=== PATIENT | male | born 1985 | race Caucasian/White ===

== ENCOUNTER 2018-04-30 16:25 | Inpatient (IN) | payer OTHER ==
[~2018-04-30] VITALS: Ht 172.7 cm; Wt 89.6 kg
--- NOTE | ~2018-04-30 | P ---
[facility] [place] [address] PROCEDURE REPORT Name: MARIO MARLOW Room #: 213-P [facility] IN M.R.#: [id number] Admission: 04/30/18 Attend Phys: Zenon Workman Discharge: Date of : 81 Report #: [id number] THIS REPORT FOR: //name// CC: Zenon Cortesen Eduardo DATE OF SERVICE: 05/01/2018 PREPROCEDURE DIAGNOSIS: Ulceration and soft tissue necrosis of the left dorsal aspect of the left forearm. POSTPROCEDURE DIAGNOSIS: Ulceration and soft tissue necrosis of the left dorsal aspect of the left forearm. PROCEDURE PERFORMED: Sharp full-thickness surgical debridement of two areas of necrosis involving the left forearm. PROCEDURE DESCRIPTION: The patient's forearm was noted to have significant ulceration and necrotic material with foul-smelling drainage and tissue loss. After appropriate verbal consent, the area was prepped and draped in usual sterile fashion. I have utilized #15 bladed scalpel and tissue forceps and performed sharp full thickness surgical debridement, removing necrotic tissue including skin and subcutaneous tissue down to healthy bleeding base including subcutaneous fat. The patient tolerated the procedure well. Procedural pain 4 on a scale of 1-10. Postprocedural pain 0 on a scale of 1-10. ESTIMATED BLOOD LOSS: Approximately 5 mL. ANESTHESIA: None. Preprocedure measurements include 3.3 cm x 3.0 cm x 0.2 cm. Following debridement, this area measures 3.5 x 3.0 x 0.5 cm. The second wound measured preprocedure 3.1 cm x 2.5 cm x 0.2 cm. Post-debridement measures 3.4 x 2.5 x 0.5 cm. The patient tolerated the procedure well. Hemostasis was intact with direct pressure. <ELECTRONICALLY SIGNED> By: Jose Carlos Ragsdale MD 05/02/18 1300 [id number] Jose Carlos Ragsdale MD /nt
--- NOTE | ~2018-04-30 | TEE ---
[facility] [email or web address] [place] [address] TRANSESOPHAGEAL ECHOCARDIOGRAM Name: KASHMIRMARIO Britt Room #: 238-P [facility] IN .R.#: [id number] Admission: 04/30/18 Attend Phys: Zenon Laboy Discharge: Date of : 81 Date of Service: 05/05/18 0958 Report #: [id number] THIS REPORT FOR: //name// APPROVED REPORT Study performed: 05/05/2018 08:18:38 EXAM: Comprehensive 2D, Doppler, and color-flow Echocardiogram Patient Location: ICU Room #: [facility] Status: routine BSA: 2.08 HR: 97 bpm BP: 116/52 mmHg Rhythm: NSR Other Information Study Quality: Good Indications Endocarditis Procedure After obtaining informed consent, patient underwent transesophageal echo in the ICU. Type of Sedation : Conscious Sedation Sedation was administered by Nurse. Sedation was achieved intravenously with: Versed (8 mg) Fentanyl (200 mcg) Transesophageal probe was inserted and advanced into esophagus without difficulty by Jose Abraham MD. The GEOFF was performed without complications. Throughout the procedure, the blood pressure, pulse oximetry, cardiac rhythm, and rate were monitored. The patient tolerated the procedure without adverse effects. Recovery from conscious sedation was uneventful and vital signs were stable. Left Ventricle The left ventricle is normal size. There is normal LV segmental wall motion. There is normal left ventricular wall thickness. The left ventricular systolic function is normal. The left ventricular ejection fraction is within the normal range. LVEF is 55-60%. [facility] [address] [place] [address] TRANSESOPHAGEAL ECHOCARDIOGRAM Name: MARIO MARLOW Room #: 238-P [facility] IN .R.#: [id number] Admission: 04/30/18 Attend Phys: Zenon Laboy Discharge: Date of : 81 Date of Service: 05/05/18 0958 Report #: [id number] Right Ventricle The right ventricle is normal size. The right ventricular systolic function is normal. Atria The left atrium size is normal. No thrombus is visualized in the left atrium or appendage. A catheter is seen in the right atrium. 2.7cm long, 1.4cm wide oval, irregular bordered broad based mass attached to right atrial free wall just at or superior to tricuspid valve annulus. Mass does not appear to affect function of valve. Findings consistent with vegetation Aortic Valve The aortic valve is normal in structure. No aortic regurgitation is present. There is no aortic valvular stenosis. Mitral Valve The mitral valve is normal in structure. Mild mitral regurgitation. No evidence of mitral valve stenosis. Tricuspid Valve The tricuspid valve is normal in structure. Mild tricuspid regurgitation. Large tricuspid valve vegetation is present. Pulmonic Valve The pulmonary valve is normal in structure. There is no pulmonic valvular regurgitation. Great Vessels The aortic root is normal in size. IVC is normal in size and collapses >50% with inspiration. Pericardium There is no pericardial effusion. Critical Notification Critical Value: Yes Physician Notified Date: 05/05/2018 <Conclusion> The left ventricular systolic function is normal. There is normal LV segmental wall motion. LVEF 55-60%. No thrombus is visualized in the left atrium or appendage. A catheter is seen in the right atrium. 2.7cm long, 1.4cm wide oval, irregular bordered broad based mass attached to right atrial free [facility] [address] [address] TRANSESOPHAGEAL ECHOCARDIOGRAM Name: MARIO MARLOW Room #: 238-P [facility] IN .R.#: [id number] Admission: 04/30/18 Attend Phys: Zenon Laboy Discharge: Date of : 81 Date of Service: 05/05/18957 Report #: [id number] wall just at or superior to tricuspid valve annulus. Mass does not appear to affect function of valve. Findings consistent with vegetation The aortic valve is normal in structure. No aortic regurgitation or stenosis The mitral valve is normal in structure. Mild mitral regurgitation. There is no pericardial effusion. <ELECTRONICALLY SIGNED> By: Jose Abraham MD, [facility] 05/05/18957 7 0958 Jose Abraham MD, FACC /INF
--- NOTE | ~2018-04-30 | 2DMMODE ---
[facility] [address] [place] [address] 2 D/M-MODE ECHOCARDIOGRAM Name: MARIO MARLOW Room #: 213-P ADM IN M.R.#: [id number] Admission: 04/30/18 Attend Phys: Zenon Laboy Discharge: Date of : 81 Date of Service: 05/01/18 1104 Report #: [id number] THIS REPORT FOR: //name// APPROVED REPORT Study performed: 05/01/2018 10:21:51 EXAM: Comprehensive 2D, Doppler, and color-flow Echocardiogram Patient Location: Bedside Room #: 213 Status: routine BSA: 1.93 HR: 101 bpm BP: 112/53 mmHg Indications Sepsis, MSSA, recurrent. History of IV drug abuse. 2D Dimensions RVDd: 37.76 mm IVSd: 9.32 (7-11mm) LVOT Diam: 21.90 (18-24mm) LVDd: 49.72 mm PWd: 7.61 (7-11mm) Ascending Ao: 28.26 (22-36mm) LVDs: 37.29 (25-40mm) Aortic Root: 31.77 mm Volumes Left Atrial Volume (Systole) Single Plane 4CH: 32.22 mL Single Plane 2CH: 54.39 mL LA ESV Index: 24.00 mL/m2 Aortic Valve AoV Peak Renato.: 1.22 m/s AO Peak Gr.: 5.99 mmHg LVOT Max P.05 mmHg LVOT Max V: 1.01 m/s RHODA Vmax: 3.10 cm2 Mitral Valve E/A Ratio: 1.5 MV Decel. Time: 97.01 ms MV E Max Renato.: 0.76 m/s MV A Renato.: 0.51 m/s MV PHT: 28.13 ms IVRT: 55.36 ms [facility] [place] [address] 2 D/M-MODE ECHOCARDIOGRAM Name: MARIO MARLOW Room #: 213-P [facility]..#: [id number] Admission: 04/30/18 Attend Phys: Zenon Laboy Discharge: Date of : 81 Date of Service: 05/01/18 1104 Report #: [id number] Pulmonary Valve PV Peak Rneato.: 0.90 m/s PV Peak Gr.: 3.27 mmHg Pulmonary Vein P Vein S: 0.33 m/s P Vein D: 0.52 m/s P Vein S/D Ratio: 0.63 Tricuspid Valve TR Peak Renato.: 2.33 m/s RAP Estimate: 5.00 mmHg TR Peak Gr.: 21.68 mmHg PA Pressure: 27.00 mmHg Left Ventricle The left ventricle is normal size. There is normal LV segmental wall motion. There is normal left ventricular wall thickness. Left ventricular systolic function is normal. LVEF is 50-55%. The left ventricular diastolic function is normal. Right Ventricle The right ventricle is normal size. The right ventricular systolic function is normal. Atria The left atrium size is normal. The right atrium size is normal. Aortic Valve The aortic valve is normal in structure. No aortic regurgitation is present. There is no aortic valvular vegetation. There is no aortic valvular stenosis. Mitral Valve The mitral valve is normal in structure. Trace mitral regurgitation. There is no evidence of mitral valve vegetations. Tricuspid Valve The tricuspid valve is normal in structure. Trace tricuspid regurgitation. Estimated PAP is 25-30mmHg. There is no tricuspid valve vegetations. Pulmonic Valve The pulmonary valve is normal in structure. Trace pulmonic regurgitation. Great Vessels [facility] [address] [place] [address] 2 D/M-MODE ECHOCARDIOGRAM Name: TRISTENRickiMARIO WATSON Room #: 213-P [facility] IN .R.#: [id number] Admission: 04/30/18 Attend Phys: Zenon Laboy Discharge: Date of : 81 Date of Service: 05/01/18 1104 Report #: [id number] The aortic root is normal in size. The ascending aorta is normal in size. IVC is normal in size and collapses >50% with inspiration. Pericardium There is no pericardial effusion. <Conclusion> The left ventricle is normal size. LVEF is 50-55%. The aortic valve is normal in structure. No aortic regurgitation is present. There is no aortic valvular vegetation. The mitral valve is normal in structure. Trace mitral regurgitation. There is no evidence of mitral valve vegetations. The tricuspid valve is normal in structure. Trace tricuspid regurgitation. Estimated PAP is 25-30mmHg. There is no tricuspid valve vegetations. There is no pericardial effusion. <ELECTRONICALLY SIGNED> By: Shawn Mcclendon MD 05/01/18 1104 1104 1104 Shawn Mcclendon MD /INF
--- NOTE | ~2018-04-30 | HC ---
[facility] [place] [address] CONSULTATION Name: TRISTENMARISMARIO Room #: 213-P ADM IN M.R.#: [id number] Admission: 04/30/18 Attend Phys: Zenon Workman Discharge: Date of : 81 Report #: [id number] THIS REPORT FOR: //name// CC: Zenon Workman Ned Eduardo DATE OF SERVICE: 05/01/2018 CHIEF COMPLAINT: Cellulitis and abscess of the right hip as well as persistent ulceration to the left forearm following a subcutaneous drug use. HISTORY OF PRESENT ILLNESS: This is a 32-year-old white male patient who was admitted to the hospital yesterday with significant swelling and redness of his right hip area. He has a history of IV drug use and subcutaneous drug use. He has been sober for greater than one year. He has had chronic ulceration or wound into his left forearm with previous staph infection. He has had previous debridement of this, but has not had recent care. He was noted to have increasing swelling of his right hip. CT scan showed a 24 x 13 x 2 cm fluid collection in the right lower extremity from the iliac crest to mid thigh. He is scheduled for a drainage procedure. He notes that he has had previous debridement of his forearm by an orthopedic surgeon. He relates some previous discussion of skin grafting which has not been undertaken. ALLERGIES: LEVAQUIN. PAST MEDICAL HISTORY: Positive for abscess and ulceration of the left forearm. MEDICATIONS: The patient's medications include metformin, trazodone, citalopram, Imitrex, Vistaril, Neurontin, hydrocodone. PAST MEDICAL HISTORY: Positive for history of kidney stones, anxiety, history of IV drug abuse, migraine, an MSSA infection to the left forearm. SOCIAL HISTORY: The patient smokes cigarettes. He denies current drug use. He states he has gone through a program to gain sobriety and has moved away from his social contacts in order to be free of the temptation to begin using drugs again. FAMILY HISTORY: Noncontributory. REVIEW OF SYSTEMS: CONSTITUTIONAL: The patient does complain of some fever and chills. Denies recent weight loss. NEUROLOGICAL: The patient denies focal weakness, numbness or tingling. EYES: The patient denies visual changes, redness or drainage. ENT: The patient denies earache, nasal drainage, sore throat. [address] [address] CONSULTATION Name: MARIO MARLOW Britt Room #: 213-P [facility] IN ..#: [id number] Admission: 04/30/18 Attend Phys: Zenon Workman Discharge: Date of : 81 Report #: [id number] CARDIOVASCULAR: The patient denies chest pain, palpitations or diaphoresis. PULMONARY: The patient denies cough or shortness of breath. GASTROINTESTINAL: The patient denies nausea, vomiting, diarrhea or abdominal pain. ORTHOPEDIC: The patient complains of significant pain, swelling and redness to his right hip as well as the ulcerations to the left forearm. Other systems in a 14-point review of systems are negative. PHYSICAL EXAMINATION: VITAL SIGNS: At this time include pulse rate 102, respiratory rate of 20, blood pressure 136/53, temperature of 99.4, T-max is 103.0. GENERAL: This is a well-developed, well-nourished male patient, appears to be in minimal distress. HEENT: Head normocephalic. Nose and throat are clear. NECK: Supple. LUNGS: Clear. HEART: Regular rhythm. ABDOMEN: Soft. Bowel sounds present. MUSCULOSKELETAL: Right hip demonstrates significant erythema, swelling, tenderness to the right hip area. No obvious fluctuance is noted. Left upper extremity demonstrates multiple ulcerations and areas of necrosis involving the dorsal aspect of the forearm. This area was debrided. Please see separate surgical debridement note performed at bedside today. NEUROLOGIC: The patient is alert and oriented and appropriate. LABORATORY DATA: Includes sodium 133, potassium is 3.4, chloride 101, CO2 of 20, BUN 32, creatinine 1.4, glucose 104. CRP is markedly elevated at 469.7. Urine drug screen is positive for cocaine and opiates. White blood cell count initially was 26.9, most recent is 21.7, hemoglobin is 10.8, hematocrit 33.6. CT abdomen and pelvis demonstrates cholelithiasis without bile duct dilatation. Gallbladder contracted. Pelvis CT demonstrates prominent soft tissue edema and cellulitis extend through the visualized right thigh and leg consistent with soft tissue infection, edema. No air seen in the soft tissues. Fluid extends along the fascial plane of the anterior vastus musculature extending approximately 24 cm in a cephalocaudad dimension on coronal images. 13 inch in transverse dimension and up to 2 cm in width. This was felt to be representing a soft tissue abscess. No osseous abnormalities were seen. CLINICAL IMPRESSION: 1. An abscess to the left hip and thigh region. 2. History of IV drug abuse. 3. Chronic ulceration likely due to previous abscess of left forearm. Note surgical debridement performed today. Please refer to separate dictation. RECOMMENDATIONS: At this point in time, we will recommend topical Fibracol Ag and Xeroform and gauze to the left forearm. Continue with IV antibiotic [address] [address] CONSULTATION Name: MARIO MARLOW Room #: 213-P [facility] IN .R.#: [id number] Admission: 04/30/18 Attend Phys: Zenon Workman Discharge: Date of : 81 Report #: [id number] therapy. A drainage procedure is scheduled for his right hip area. We will recommend aggressive nutritional support, maybe additional substance abuse counseling would be in order based on the laboratory studies performed on admission. All questions have been answered. I appreciate being asked to see him in consultation. <ELECTRONICALLY SIGNED> By: Jose Carlos Ragsdale MD 05/02/18 1300 1904 2344 Jose Carlos Ragsdale MD /nt
--- NOTE | ~2018-04-30 | O ---
[facility] [place] [address] OPERATIVE REPORT Name: MARIO MARLOW Room #: 238-P [facility] IN M.R.#: [id number] Admission: 04/30/18 Attend Phys: Zenon Workman Discharge: Date of : 81 Report #: [id number] THIS REPORT FOR: //name// CC: Zenon Clark DATE OF SERVICE: 05/05/2018 PREOPERATIVE DIAGNOSIS: Right thigh abscess. POSTOPERATIVE DIAGNOSIS: Right thigh abscess. PROCEDURE: Right thigh irrigation and debridement. SURGEON: Torres Luciano M.D. BELLHOP: Essence Lopez. ANESTHESIA: General. ESTIMATED BLOOD LOSS: 10 mL. DRAINS: Two Hemovac drains were placed. COMPLICATIONS: There were no complications. DESCRIPTION OF PROCEDURE: The patient brought to the operating room where he was placed under general anesthesia. Once under adequate general anesthesia, his right thigh was prepped and draped in a sterile manner. The patient's previous incisions were then opened utilizing hemostats and abundant purulence did emanate from the wound at that point. This was approximately 200 mL of purulence. The thigh was then irrigated copiously with normal saline solution. Six liters of solution were run through the thigh. The wounds were closed loosely over Hemovac drains with 2-0 nylon suture in a simple stitch manner. The wounds were dressed with Xeroform, 4 x 4s, and a sterile soft compressive dressing was placed. There were no complications from the procedure. The patient tolerated the procedure well and went to the recovery room without incident. By: 1459 1751 Torres Luciano MD /nt
--- NOTE | ~2018-04-30 | HC ---
[facility] [place] [address] CONSULTATION Name: KASHMIRMARIO A Room #: 238-P [facility] IN M.R.#: [id number] Admission: 04/30/18 Attend Phys: Zenon Workman Discharge: Date of : 81 Report #: [id number] THIS REPORT FOR: //name// CC: Zenon Workman Ned Daynelaurentjuangeri DATE OF SERVICE: 05/03/2018 IDENTIFYING INFORMATION: A 32-year-old male. HISTORY OF PRESENT ILLNESS: This gentleman was brought here with lower extremity infection, specifically right hip pain and left arm wound drainage. He has endorsed this has come about without any injury or exacerbating event. The patient has endorsed history of substance use disorder, but no IV drug usage in the last 14 months. Specifically, he has endorsed that he is in treatment with respect to substance use disorder. Staff has been concerned because of some irregular behaviors and changing information on the part of the patient. Most notably, the patient was found to be trying to self-administer some home medications or substances on his own; most notably substances he appears to have had hidden in his rectum in a small plastic bag. The patient admitted that the plastic bag contained heroin. PAST PSYCHIATRIC HISTORY: The patient is known to me as he was in my outpatient practice for opioid dependence treatment for a number of months. It became unable to treat the patient because of continued positive drug screens. We recommend he pursue inpatient treatment and I believe he did this. So it is quite possible that he had enjoyed a number of months of sobriety or longer for a while. ALLERGIES: LEVAQUIN. CURRENT MEDICATIONS: Thiamine, vitamin, Ativan p.r.n., gabapentin 900 three times daily, Vistaril 50 at bedtime and vancomycin. PAST MEDICAL HISTORY: Lower extremity swelling on the right and forearm wounds on the left. MENTAL STATUS EXAM: male, appropriately dressed, depressed mood, restricted affect, sparse speech, not engaging with me. No suicidal or homicidal ideations verbalized. No hallucinations or delusions appreciated. Insight and judgment limited. DIAGNOSES: Mood disorder, not otherwise specified; polysubstance abuse. RECOMMENDATIONS: Staff tells me the patient was awake earlier, so it appears he intentionally pretended to sleep and disengaged so as not to have to interact [address] [address] CONSULTATION Name: MARIO MARLOW Britt Room #: 238-P [facility] IN M.R.#: [id number] Admission: 04/30/18 Attend Phys: Zenon Workman Discharge: Date of : 81 Report #: [id number] with me. I did impress upon the patient that we are prepared to help him with any detox needs he may have as well as craving within parameters of what we could reasonably accomplish. I emphasized the safety concerns with patients utilizing additional medications on their own. It does not appear he has anything else near on his person. It is my understanding that he even did an x-ray to rule out any other sort of illicit substances that could be heading internally. Unfortunately, we will probably need to restrict visitation going forward to. Once the patient is no longer taking fentanyl or other narcotics, he may be a candidate to restart opioid replacement here in the hospital. It appears he will be returning to an outpatient provider who can prescribe this and if he is indeed motivated for sobriety, but struggling with craving. By: 1638 2337 Guy Ramos MD /nt
--- NOTE | ~2018-04-30 | HC ---
[facility] [place] [address] CONSULTATION Name: KASHMIRAMRIO Britt Room #: 238-P ADM IN M.R.#: [id number] Admission: 04/30/18 Attend Phys: Zenon Workman Discharge: Date of : 83 Report #: [id number] THIS REPORT FOR: //name// CC: Zenon Clark CHIEF COMPLAINT: Abscess of the right thigh. HISTORY OF PRESENT ILLNESS: This is a 32-year-old gentleman with a history of left forearm ulcers related to subcutaneous drug abuse and history of IV drug abuse, admitted with an abscess to his right thigh. He has been evaluated and noted to have an extensive abscess. Orthopedics was consulted for management. PAST MEDICAL HISTORY: As above. He is being followed by Dr. Ragsdale for wound care. MEDICATIONS: As noted on the MAR. ALLERGIES: None. LABORATORY DATA: Note a white count of 19.4. PHYSICAL EXAMINATION: Examination of the patient's right lower extremity notes that he has a tense right thigh, pain with any range of motion through his knee. No groin pain particularly. The right thigh is swollen and edematous. He has good pulses distally. He does have some erythema surrounding his thigh as well. IMAGING: A CT scan is reviewed noting an abscess in the subfascial plane along the anterolateral thigh. IMPRESSION: Right thigh abscess. PLAN: Risks, benefits, alternatives, and complications were discussed at length with the patient. We will proceed with a right thigh irrigation and debridement in the very near future. <ELECTRONICALLY SIGNED> By: Torres Luciano MD 05/05/18 1456 1719 1742 Torres Luciano MD /nt
--- NOTE | ~2018-04-30 | EKG ---
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
--- NOTE | ~2018-04-30 | O ---
[facility] [place] [address] OPERATIVE REPORT Name: MARIO MARLOW Room #: 238-P [facility] IN M.R.#: [id number] Admission: 04/30/18 Attend Phys: Zenon Workman Discharge: Date of : 81 Report #: [id number] THIS REPORT FOR: //name// CC: Zenon Cortesen Eduardo DATE OF SERVICE: 05/02/2018 PREOPERATIVE DIAGNOSIS: Right thigh abscess. POSTOPERATIVE DIAGNOSIS: Right thigh abscess. PROCEDURE: Right thigh irrigation and debridement. SURGEON: Torres Luciano M.D. MANPOWER DEVELOPMENT ADVISOR: Essence Lopez. ANESTHESIA: General. ESTIMATED BLOOD LOSS: 50 mL DRAINS: Two Hemovac drains were placed. COMPLICATIONS: There were no complications. DESCRIPTION OF PROCEDURE: The patient was brought to the operating room where he was placed under general anesthesia. Once under adequate general anesthesia, his right thigh was prepped and draped in a sterile manner. Two 6 cm incisions were made proximally and distally on the lateral thigh. Dissection was carried down to the tensor fascia, which was then incised and abundant purulence did emanate from the wound at that point. The wound was then irrigated copiously with normal saline solution utilizing the pulsatile lavage. Once 6 liters of fluid was run through the thigh, the wound was then closed over Hemovac drains with 2-0 Vicryl in the subcutaneous tissues and angelo for the skin. The wounds were dressed with Xeroform, 4 x 4s and sterile soft compressive dressing was placed. There were no complications from the procedure. The patient tolerated the procedure well and was taken to the recovery room without incident. <ELECTRONICALLY SIGNED> By: Torres Luciano MD 05/05/18 1456 [id number] Torres Luciano MD /nt
[2018-04-30 16:25] VITALS: BP 141/79
[~2018-04-30 16:25] MED LIST: CARISOPRODOL 3350 MG PO; CELEXA20 MG; CIPRO500 M1; DESYREL150 MG; IMITREX100 MG; METFORMIN HCL500 MG; NOHOMEMEDICATIONS; NORCO 5-325 TA1 EACH PO; ULTRAM 50MG TAB50 MG PO; VERAPAMIL ER240 MG PO; ZOFRAN4 MG PO; ZPAK PO
[2018-04-30] MEDS ORDERED: VISTARIL 25 MG25 M1 PO (16:52)
[2018-04-30] MEDS ORDERED: NEURONTIN600 MG PO (16:52)
[2018-04-30] MEDS ORDERED: NEURONTIN 300300 M1 PO (16:53)
[2018-04-30 17:15] LABS: HEMATOCRIT 39.1 % (42.0-52.0); HEMOGLOBIN 12.8 gm/dL (14.0-18.0); MCH 23.3 pg (26.0-34.0); MCHC 32.7 g/dL (28.0-37.0); MCV 71.1 fL (80.0-100.0); PLATELET COUNT 293 thou/uL (150-400); RBC 5.49 mil/uL (4.50-6.00); RDW 16.2 % (10.5-14.5); WBC 26.9 thou/uL (4.0-11.0)
[2018-04-30 17:21] LABS: CALCIUM 8.5 mg/dL (8.5-10.1); CREATININE 1.9 mg/dL (0.7-1.3); POTASSIUM 3.4 mmol/L (3.5-5.1)
[2018-04-30 17:27] LABS: ALBUMIN 2.3 g/dL (3.4-5.0); TOTAL BILIRUBIN 0.8 mg/dL (<0.1-1.0); TOTAL PROTEIN 7.6 g/dL (6.4-8.2)
[2018-04-30 17:42] LABS: ABSOLUTE NEUTROPHILS 23.4 thou/uL (1.4-8.2)
[2018-04-30 17:43] LABS: HYPOCHROMASIA 2+; MICROCYTES 2+; TOXIC GRANULATION 1+
[2018-04-30 18:32] VITALS: BP 141/79
[2018-04-30 21:36] VITALS: BP 109/55
[2018-04-30 21:59] VITALS: BP 116/57
[2018-04-30 22:21] VITALS: BP 114/63
[2018-05-01 03:40] VITALS: BP 112/53
[2018-05-01 04:04] LABS: CALCIUM 6.8 mg/dL (8.5-10.1); CREATININE 1.4 mg/dL (0.7-1.3); MAGNESIUM 1.6 mg/dL (1.8-2.4); POTASSIUM 3.4 mmol/L (3.5-5.1)
[2018-05-01 04:28] LABS: HEMATOCRIT 33.6 % (42.0-52.0); MCH 23.2 pg (26.0-34.0); MCHC 32.3 g/dL (28.0-37.0); MCV 71.8 fL (80.0-100.0); RBC 4.68 mil/uL (4.50-6.00); RDW 16.7 % (10.5-14.5); WBC 21.7 thou/uL (4.0-11.0)
[2018-05-01 04:38] LABS: HEMOGLOBIN 10.8 gm/dL (14.0-18.0)
[2018-05-01 14:30] LABS: URINE BILIRUBIN NEGATIVE (Negative); URINE BLOOD 1+ (Negative); URINE CLARITY SL CLOUDY; URINE COLOR YELLOW; URINE GLUCOSE-RANDOM* NEGATIVE (Negative); URINE KETONES NEGATIVE (Negative); URINE LEUKOCYTES-REFLEX NEGATIVE (Negative); URINE NITRITE-REFLEX NEGATIVE (Negative); URINE PROTEIN (DIPSTICK) 1+ (Negative); URINE SPECIFIC GRAVITY >= 1.030 (1.005-1.035)
[2018-05-01 14:39] LABS: AMP/METHAMP Negative (Negative); BARBITURATES Negative (Negative); BENZODIAZEPINES POSITIVE (Negative); COCAINE POSITIVE (Negative); METHADONE Negative (Negative); OPIATES POSITIVE (Negative); PCP Negative (Negative); SQUAMOUS 0-3 Few /LPF (0-3); URINE RBC 0-2 Rare /HPF (0-2); URINE WBC-REFLEX 6-15 Few /HPF (0-5)
[2018-05-01 14:40] LABS: COARSE GRANULAR CASTS 4-10 Moderate /LPF (None Seen); CRYSTALS None Seen /LPF (None Seen)
[2018-05-01 14:50] LABS: BACTERIA-REFLEX None Seen /HPF (None Seen)
[2018-05-01 16:00] VITALS: BP 136/53
[2018-05-01 20:45] VITALS: BP 110/61
[2018-05-02] VITALS (13 sets, daily range): BP systolic 84–113; BP diastolic 47–61
[2018-05-02 03:20] LABS: ALBUMIN 1.5 g/dL (3.4-5.0); CALCIUM 7.1 mg/dL (8.5-10.1); CREATININE 1.5 mg/dL (0.7-1.3); PHOSPHORUS 2.7 mg/dL (2.5-4.9); POTASSIUM 4.1 mmol/L (3.5-5.1)
[2018-05-02 04:22] LABS: HEMATOCRIT 32.6 % (42.0-52.0); HEMOGLOBIN 10.6 gm/dL (14.0-18.0); MCH 23.3 pg (26.0-34.0); MCHC 32.4 g/dL (28.0-37.0); MCV 71.8 fL (80.0-100.0); RBC 4.55 mil/uL (4.50-6.00); RDW 16.8 % (10.5-14.5); WBC 19.4 thou/uL (4.0-11.0)
[2018-05-03] VITALS (34 sets, daily range): BP systolic 90–126; BP diastolic 38–71
[2018-05-03 05:00] LABS: HEMATOCRIT 30.2 % (42.0-52.0); HEMOGLOBIN 9.6 gm/dL (14.0-18.0); MCH 22.9 pg (26.0-34.0); MCHC 31.8 g/dL (28.0-37.0); MCV 72.1 fL (80.0-100.0); RBC 4.19 mil/uL (4.50-6.00); RDW 17.1 % (10.5-14.5)
[2018-05-03 05:13] LABS: CALCIUM 7.5 mg/dL (8.5-10.1); CREATININE 1.1 mg/dL (0.7-1.3); POTASSIUM 3.8 mmol/L (3.5-5.1)
[2018-05-04] VITALS (33 sets, daily range): BP systolic 99–124; BP diastolic 18–72
[2018-05-04 18:48] LABS: HEMOGLOBIN 9.5 gm/dL (14.0-18.0); MCH 23.4 pg (26.0-34.0); MCHC 32.9 g/dL (28.0-37.0); RBC 4.08 mil/uL (4.50-6.00); RDW 16.9 % (10.5-14.5); WBC 19.7 thou/uL (4.0-11.0)
[2018-05-05] VITALS (31 sets, daily range): BP systolic 103–132; BP diastolic 41–76
[2018-05-06] VITALS (31 sets, daily range): BP systolic 89–125; BP diastolic 64–87
[2018-05-06 04:35] LABS: HEMATOCRIT 28.4 % (42.0-52.0); HEMOGLOBIN 9.2 gm/dL (14.0-18.0); MCH 23.1 pg (26.0-34.0); MCHC 32.5 g/dL (28.0-37.0); RBC 3.99 mil/uL (4.50-6.00); RDW 17.3 % (10.5-14.5)
[2018-05-06 05:25] LABS: PLATELET COUNT 268 thou/uL (150-400)
[2018-05-06 06:14] LABS: ALBUMIN 1.2 g/dL (3.4-5.0); CALCIUM 7.7 mg/dL (8.5-10.1); CREATININE 0.8 mg/dL (0.7-1.3); POTASSIUM 4.6 mmol/L (3.5-5.1); TOTAL BILIRUBIN 0.2 mg/dL (<0.1-1.0); TOTAL PROTEIN 5.5 g/dL (6.4-8.2)
[2018-05-06 06:17] LABS: PLATELET ESTIMATE NORMAL
[2018-05-06 06:18] LABS: POLYCHROMASIA OCCASIONAL
[2018-05-06 06:24] LABS: ABSOLUTE NEUTROPHILS 15.8 thou/uL (1.4-8.2)
[2018-05-06 06:26] LABS: METAMYELOCYTES 2 %; MYELOCYTES 2 %; PROMYELOCYTES 1 %
[2018-05-07 00:55] VITALS: BP 111/68
[2018-05-07 03:52] VITALS: BP 125/72
[2018-05-07 04:36] LABS: HEMATOCRIT 27.9 % (42.0-52.0); HEMOGLOBIN 8.8 gm/dL (14.0-18.0); MCH 22.5 pg (26.0-34.0); MCHC 31.6 g/dL (28.0-37.0); MCV 71.3 fL (80.0-100.0); RBC 3.91 mil/uL (4.50-6.00); RDW 17.3 % (10.5-14.5); WBC 21.4 thou/uL (4.0-11.0)
[2018-05-07 04:48] LABS: ALBUMIN 1.3 g/dL (3.4-5.0); CALCIUM 7.7 mg/dL (8.5-10.1); CREATININE 0.7 mg/dL (0.7-1.3); PHOSPHORUS 3.6 mg/dL (2.5-4.9); POTASSIUM 4.5 mmol/L (3.5-5.1)
[2018-05-07 09:23] VITALS: BP 117/63
[2018-05-07 17:18] VITALS: BP 127/75
[2018-05-08 05:12] LABS: HEMATOCRIT 28.6 % (42.0-52.0); HEMOGLOBIN 9.3 gm/dL (14.0-18.0); MCH 23.4 pg (26.0-34.0); MCHC 32.6 g/dL (28.0-37.0); MCV 71.6 fL (80.0-100.0); RDW 17.9 % (10.5-14.5); WBC 18.9 thou/uL (4.0-11.0)
[2018-05-08 05:18] LABS: PLATELET COUNT 409 thou/uL (150-400)
[2018-05-08 05:19] LABS: CALCIUM 8.1 mg/dL (8.5-10.1); CREATININE 0.9 mg/dL (0.7-1.3); POTASSIUM 4.1 mmol/L (3.5-5.1)
[2018-05-08 05:45] LABS: ABSOLUTE NEUTROPHILS 12.5 thou/uL (1.4-8.2); ANISOCYTOSIS 1+; ATYPICAL LYMPHS 5 %; HYPOCHROMASIA 1+; METAMYELOCYTES 1 %; MICROCYTES 1+; MYELOCYTES 1 %; PROMYELOCYTES 1 %
[2018-05-08 05:46] LABS: POLYCHROMASIA OCCASIONAL
[2018-05-08 10:39] VITALS: BP 121/64
[2018-05-08] MEDS ORDERED: VANCO1GM IVPB (15:27)
[2018-05-08] MEDS ORDERED: NICOTINE TRANSD21 M1 TRANSDERM (15:27)
== END 2018-05-08 16:45 | DRG 853 ==
LOC: ER 16:25 → ICU 18:24 → 2N 18:24 → EROBS 18:24 → 2N 22:00 → ICU 05-02 20:25
PROVIDERS: Family Medicine; Hospitalist; Nurse Practitioner Acute Care; Nurse Practitioner Family; Orthopaedic Surgery Foot and Ankle Surgery; Physician Assistant
PROC: 0JBH0ZZ Excision of Left Lower Arm Subcutaneous Tissue and Fascia, Open Approach (ICD-10-PCS; principal; 2018-05-01)
PROC: 0JBL0ZZ Excision of Right Upper Leg Subcutaneous Tissue and Fascia, Open Approach (ICD-10-PCS; 2018-05-02)
PROC: 0JDL0ZZ Extraction of Right Upper Leg Subcutaneous Tissue and Fascia, Open Approach (ICD-10-PCS; 2018-05-05)
PROC: B24BZZ4 Ultrasonography of Heart with Aorta, Transesophageal (ICD-10-PCS; 2018-05-05)
PROC: 02HV33Z Insertion of Infusion Device into Superior Vena Cava, Percutaneous Approach (ICD-10-PCS; 2018-05-07)
DX: A41.02 Sepsis due to Methicillin resistant Staphylococcus aureus (principal); I33.0 Acute and subacute infective endocarditis; L02.415 Cutaneous abscess of right lower limb; N17.9 Acute kidney failure, unspecified; L03.115 Cellulitis of right lower limb; E87.1 Hypo-osmolality and hyponatremia; L02.416 Cutaneous abscess of left lower limb; I96 Gangrene, not elsewhere classified; L02.414 Cutaneous abscess of left upper limb; M60.051 Infective myositis, right thigh; F41.9 Anxiety disorder, unspecified; E87.6 Hypokalemia; B95.2 Enterococcus as the cause of diseases classified elsewhere; G43.909 Migraine, unspecified, not intractable, without status migrainosus; F39 Unspecified mood [affective] disorder; F19.10 Other psychoactive substance abuse, uncomplicated; L98.499 Non-pressure chronic ulcer of skin of other sites with unspecified severity; F17.210 Nicotine dependence, cigarettes, uncomplicated; Z87.442 Personal history of urinary calculi; Z79.899 Other long term (current) drug therapy; Z88.1 Allergy status to other antibiotic agents; Z80.42 Family history of malignant neoplasm of prostate; Z23 Encounter for immunization; B95.62 Methicillin resistant Staphylococcus aureus infection as the cause of diseases classified elsewhere
CPT/HCPCS: 10078; 10081; 27000; 50010; 50101; 50386; 51412; 53078; 56524; 56525; 57091; 57103; 62110; 62900; 70005